=== PATIENT | male | born 1955 | race Caucasian/White ===

== ENCOUNTER 2016-07-26 16:27 | Emergency (ER) | payer OTHER ==
[~2016-07-26] VITALS: Ht 167.6 cm; Wt 111.0 kg
[~2016-07-26 16:27] MED LIST: ENDOCET 5-3251 EACH PO; METOPROLOL SUCC25 MG PO; MONTELUKAST SOD10 MG PO; VALIUM5 MG PO; VENTOLIN HFA18 GM IH
[2016-07-26 16:52] LABS: HEMATOCRIT 42.6 % (38.0-50.0); MCH 30.8 PG (29.0-34.0); MCHC 34.7 G/DL (30.0-36.0); MCV 88.8 FL (86-99); MEAN PLAT.VOLUME 10.2 uM^3 (9.0-12.4); PLATELET COUNT 263 K/uL (156-360); RBC DIS.WIDTH-CV 13.4 % (11.8-14.6); WHITE BLOOD COUNT 6.9 K/uL (4.1-10.2)
[2016-07-26 17:04] LABS: CHLORIDE 108 mEq/L (99-109); POTASSIUM 4.5 mEq/L (3.7-5.4); SODIUM 141 mEq/L (136-147)
[2016-07-26 17:06] LABS: GLUCOSE 113 mg/dL (70-99)
[2016-07-26 17:07] LABS: ANION GAP 10 MEQ/L (2-14)
[2016-07-26 17:10] LABS: GFR ESTIMATE (CALCULATED) > 59 mL/min/; UREA NITROGEN (BUN) 13 mg/dL (9-23)
[2016-07-26 17:13] LABS: TROP-I INTERPRETATION NEGATIVE; TROPONIN-I < 0.01 ng/mL (0.0-0.30)
[2016-07-26] MEDS ORDERED: LO-DOSE ASPIRIN81 M2 PO (18:17)
[2016-07-26 18:19] LABS: TOTAL BILIRUBIN 0.4 mg/dL (0.0-1.0)
[2016-07-26 18:20] LABS: ALKALINE PHOSPHATASE 82 IU/L (3-129)
[2016-07-26 18:20] LABS: D-DIMER ELISA 0.21 mg/L FEU (< 0.57)
[2016-07-26 18:22] LABS: DIRECT BILIRUBIN 0.1 mg/dL (0.0-0.3)
[2016-07-26 20:15] LABS: TROP-I INTERPRETATION NEGATIVE; TROPONIN-I < 0.01 ng/mL (0.0-0.30)
[2016-07-26] MEDS ORDERED: ASPIRIN325 MG PO (20:27)
[2016-07-26 20:38] VITALS: BP 136/94
== END 2016-07-26 20:52 | disposition home or self-care (01) ==
LOC: EME 16:27
PROVIDERS: Emergency Medicine
DX: R07.9 Chest pain, unspecified (principal); I10 Essential (primary) hypertension; K21.9 Gastro-esophageal reflux disease without esophagitis; Z79.82 Long term (current) use of aspirin; Z87.891 Personal history of nicotine dependence
CPT/HCPCS: 71020; 80048; 80076; 84484; 85027; 85379; 93005; 99281; 99284

== ENCOUNTER 2017-03-22 06:41 | Emergency (ER) | payer OTHER ==
[~2017-03-22] VITALS: Ht 167.6 cm; Wt 118.0 kg
[~2017-03-22 06:41] MED LIST changes: +ASPIRIN325 MG PO; +LO-DOSE ASPIRIN81 M2 PO
[2017-03-22 07:42] LABS: HEMATOCRIT 42.8 % (38.0-50.0); MCH 30.5 PG (29.0-34.0); MCHC 33.6 G/DL (30.0-36.0); MCV 90.7 FL (86-99); MEAN PLAT.VOLUME 9.8 uM^3 (9.0-12.4); PLATELET COUNT 265 K/uL (156-360); RBC DIS.WIDTH-CV 13.2 % (11.8-14.6); RBC DIS.WIDTH-SD 43.6 % (39-53); RED BLOOD COUNT 4.72 M/uL (4.00-5.50); WHITE BLOOD COUNT 6.2 K/uL (4.1-10.2)
[2017-03-22 07:44] LABS: ADD MIUA? YES; BILIRUBIN NEGATIVE; BLOOD LARGE; COLOR YELLOW ((YELLOW)); GLUCOSE (STRIP) NEGATIVE; KETONES NEGATIVE; LEUKOCYTES NEGATIVE; NITRITE NEGATIVE; PROTEIN (STRIP) 100; SPECIFIC GRAVITY 1.034 (1.000-1.030); UROBILINOGEN 0.2 MG/DL (0.2-1.0)
[2017-03-22 07:49] LABS: BACTERIA RARE /HPF; EPITHELIAL CELLS NONE SEEN /HPF; MUCUS TRACE /LPF; RED BLOOD CELLS TNTC /HPF (0-5); UCUL ADDED? YES; UNCLASSIFIED CRYSTALS 1+ /HPF
[2017-03-22 08:07] LABS: ANION GAP 12 MEQ/L (2-14); CHLORIDE 107 MEQ/L (99-109); POTASSIUM 3.7 MEQ/L (3.7-5.4); SAMPLE HEMOLYSIS CHECK 0; SAMPLE ICTERIC CHECK 0; SAMPLE LIPEMIA CHECK 1; SODIUM 139 MEQ/L (136-147)
[2017-03-22 08:12] LABS: GFR ESTIMATE (CALCULATED) > 59 mL/min/; GLUCOSE 115 mg/dL (70-99); UREA NITROGEN (BUN) 16 mg/dL (9-23)
[2017-03-22 08:27] VITALS: BP 138/92
[2017-03-22] MEDS ORDERED: ULTRAM50 MG PO (08:38)
== END 2017-03-22 08:41 | disposition home or self-care (01) ==
LOC: EME 06:41
PROVIDERS: Nurse Practitioner Family
PROC: 0T9B70Z Drainage of Bladder with Drainage Device, Via Natural or Artificial Opening (ICD-10-PCS; principal; 2017-03-22)
DX: N40.1 Benign prostatic hyperplasia with lower urinary tract symptoms (principal); N39.0 Urinary tract infection, site not specified; N39.43 Post-void dribbling; I10 Essential (primary) hypertension; Z87.891 Personal history of nicotine dependence
CPT/HCPCS: 80048; 81003; 85027; 87086; 99281; 99285

== ENCOUNTER 2017-06-03 14:11 | Emergency (ER) | payer OTHER ==
[~2017-06-03] VITALS: Ht 170.2 cm; Wt 118.0 kg
[~2017-06-03 14:11] MED LIST changes: +ULTRAM50 MG PO
[2017-06-03 14:41] LABS: ADD MIUA? YES; BILIRUBIN NEGATIVE; BLOOD MODERATE; GLUCOSE (STRIP) NEGATIVE; KETONES NEGATIVE; LEUKOCYTES TRACE; NITRITE NEGATIVE; PROTEIN (STRIP) NEGATIVE; SPECIFIC GRAVITY 1.016 (1.000-1.030); UROBILINOGEN 0.2 MG/DL (0.2-1.0)
[2017-06-03 14:44] LABS: COLOR GREEN ((YELLOW))
[2017-06-03 14:56] LABS: BACTERIA RARE /HPF; EPITHELIAL CELLS RARE /HPF; MUCUS TRACE /LPF; RED BLOOD CELLS TNTC /HPF (0-5); UCUL ADDED? YES; WHITE BLOOD CELLS 0-5 /HPF (0-5)
[2017-06-03 15:39] LABS: HEMATOCRIT 42.5 % (38.0-50.0); MCHC 34.8 G/DL (30.0-36.0); MCV 89.1 FL (86-99); MEAN PLAT.VOLUME 9.9 uM^3 (9.0-12.4); PLATELET COUNT 287 K/uL (156-360); RBC DIS.WIDTH-CV 12.6 % (11.8-14.6); RBC DIS.WIDTH-SD 41.3 % (39-53); RED BLOOD COUNT 4.77 M/uL (4.00-5.50); WHITE BLOOD COUNT 12.1 K/uL (4.1-10.2)
[2017-06-03 15:50] LABS: CHLORIDE 108 mEq/L (99-109); POTASSIUM 3.9 mEq/L (3.7-5.4); SODIUM 141 mEq/L (136-147)
[2017-06-03 15:51] LABS: GLUCOSE 113 mg/dL (70-99)
[2017-06-03 15:53] LABS: ANION GAP 14 MEQ/L (2-14)
[2017-06-03 15:55] LABS: GFR ESTIMATE (CALCULATED) > 59 mL/min/
[2017-06-03 15:56] LABS: UREA NITROGEN (BUN) 13 mg/dL (9-23)
[2017-06-03] MEDS ORDERED: PERCOCET 5/31 TABLET PO (19:44)
[2017-06-03] MEDS ORDERED: ZOFRAN4 MG PO (19:44)
[2017-06-03] MEDS ORDERED: FLOMAX0.4 MG PO (19:44)
[2017-06-03 20:06] VITALS: BP 139/102
== END 2017-06-03 20:23 | disposition home or self-care (01) ==
LOC: EME 14:11
DX: N13.2 Hydronephrosis with renal and ureteral calculous obstruction (principal); E11.9 Type 2 diabetes mellitus without complications; I10 Essential (primary) hypertension; K21.9 Gastro-esophageal reflux disease without esophagitis; Z79.82 Long term (current) use of aspirin
CPT/HCPCS: 74176; 80048; 81003; 85027; 87086; 93005; 99281; 99284; J1885; J2270; J2405; J7030

== ENCOUNTER → 2017-06-08 | Outpatient (CLI) | payer OTHER ==
[~2017-06-08] VITALS: Ht 167.6 cm; Wt 117.9 kg
[~2017-06-08] MED LIST changes: +FLOMAX0.4 MG PO; +PERCOCET 5/31 TABLET PO; +ZOFRAN4 MG PO
== END | disposition home or self-care (01) ==
LOC: AMB 08:28
PROC: 0TF6XZZ Fragmentation in Right Ureter, External Approach (ICD-10-PCS; principal; 2017-06-08)
DX: N20.1 Calculus of ureter (principal)
CPT/HCPCS: 74000; J2250; J2405